=== PATIENT | female | born 1935 | race Caucasian/White ===

== ENCOUNTER → 2018-05-15 | Outpatient (CLI) | payer MEDICARE, BC ==
--- NOTE | 2018-05-15 15:02 | MR ---
EXAMINATION TYPE: MR angio head wo con DATE OF EXAM: 05/15/2018 COMPARISON: NONE HISTORY: Double vision, mental status changes TECHNIQUE: Time of flight images focusing on the [place] were performed without contrast.. 2-D and 3-D postprocessing imaging is performed on MRI scanner. FINDINGS: There is dominant right vertebral artery. Vertebral arteries are patent to basilar junction . There is patent left-sided posterior communicating artery. There is hypoplastic right-sided posteri or commuting artery. No significant stenosis or aneurysmal change in posterior circulation is present . Images in the anterior circulation show patent anterior communicating artery. There is no significant focal stenosis or aneurysmal change seen. IMPRESSION: No aneurysmal change at level of [place].
--- NOTE | 2018-05-15 15:45 | MR ---
EXAMINATION TYPE: MR brain wo/w con DATE OF EXAM: 05/15/2018 COMPARISON: None HISTORY: Double vision, mental status changes TECHNIQUE: Multiplanar, multisequence images of the brain and brainstem is performed without and with IV contras t, utilizing 6 mL intravenous Gadavist . FINDINGS: Diffusion weighted images demonstrate no evidence of a recent infarct or other diffusion ab normality. There is no extra-axial fluid collection. Periventricular white matter shows confluent a nd scattered hyperintensities on inversion recovery T2-weighted sequences, juxtacortical, pericallosa l, subcortical hyperintensities are present. Index lesion towards convexity on the right measures clifford roximately 11 mm x 7 mm on axial images #25 and 24. Additionally there is cortical atrophy is likely age-related. The ventricular system and cisternal spaces are normal in size and appearance. Midline structures demonstrate normal morphology. The craniocervical junction appears within normal limits. Post contrast images demonstrate no abnormal enhancement. The dural venous sinuses appear pa tent. The globes are intact. Mild inflammatory change present in the mastoid air cells on the right. Inflammatory change present within the sphenoid sinus, ethmoid air cells IMPRESSION: White matter demyelination may be due to chronic small vessel ischemia. Correlate for sph enoid sinusitis. No subacute ischemia evident.
== END | disposition home or self-care (01) ==
LOC: RADMRIMAIN 12:36
PROVIDERS: ATTEND Family Medicine
DX: G37.9 Demyelinating disease of central nervous system, unspecified (principal); H53.2 Diplopia; R41.82 Altered mental status, unspecified
CPT/HCPCS: 82565; 84520; 70544; 70553; A9585

== ENCOUNTER 2018-09-07 17:52 | Emergency (ER) | payer MEDICARE, BC ==
[2018-09-07 18:11] VITALS: RESP 18
[2018-09-07] MEDS ORDERED: SODIUM CHLORIDE 0.9% 1,000 ML IV STA (18:34)
--- NOTE | 2018-09-07 18:49 | ED ---
Abdominal Pain HPI - General Chief Complaint: Abdominal Pain Stated Complaint: Bowel issues Time Seen by Provider: 09/07/18 18:11 Source: patient Mode of arrival: wheelchair Limitations: no limitations - History of Present Illness Initial Comments: 82-year-old female patient presents to the emergency department today for evaluation of lower abdominal pain and pressure and low back pain. Patient states that she has been having symptoms similar to this over the last couple of weeks and dealing with constipation. Patient states she did have 3 soft bowel movements yesterday. States that today she has been very weak and has not wanted to get out of bed. States that her legs feel weak and it is difficult to walk even with her walker. She denies any fever or chills. Denies any nausea, vomiting, hematuria, dysuria, urinary frequency, urinary urgency. Denies any headache, blurred vision, double vision, dizziness, numbness or tingling to her extremities. Patient denies any recent rash, fever, chills, shortness breath, chest pain, or any other complaints. - Related Data Home Medications Medication Instructions Recorded Confirmed Albuterol Inhaler [Ventolin Hfa 2 puff INHALATION RT-Q8H 09/07/18 09/07/18 Inhaler] Aspirin [[place] Aspirin EC] 81 mg PO DAILY 09/07/18 09/07/18 Cholecalciferol [Vitamin D3] 1,000 unit PO DAILY 09/07/18 09/07/18 Cider Vinegar [Apple Cider Vinegar] 300 mg PO DAILY 09/07/18 09/07/18 Citalopram Hydrobromide [CeleXA] 40 mg PO DAILY 09/07/18 09/07/18 Metoprolol Tartrate [Lopressor] 50 mg PO DAILY 09/07/18 09/07/18 Multivitamins, Thera [Multivitamin 1 tab PO DAILY 09/07/18 09/07/18 (formulary)] [place]-3 Fatty Acids/Fish Oil [Fish 1 cap PO DAILY 09/07/18 09/07/18 Oil 1,000 mg Softgel] Phytonadione [Vitamin K] 5 mg PO DAILY 09/07/18 09/07/18 Turmeric Root Extract [Turmeric] 500 mg PO DAILY 09/07/18 09/07/18 amLODIPine [Norvasc] 5 mg PO DAILY 09/07/18 09/07/18 traZODone HCL [TraZODone HCl] 50 mg PO DIRECTED 09/07/18 09/07/18 Previous Rx's Medication Instructions Recorded Polyethylene Glycol 3350 [Miralax] 17 gm PO DAILY #30 packet 09/07/18 Potassium Chloride ER [K-Dur 20] 20 meq PO DAILY #7 tab 09/07/18 Allergies Allergy/AdvReac Type Severity Reaction Status Date / Time No Known Allergies Allergy Verified 09/07/18 18:55 Review of Systems ROS Statement: Those systems with pertinent positive or pertinent negative responses have been documented in the HPI. ROS Other: All systems not noted in ROS Statement are negative. Past Medical History Past Medical History: Hyperlipidemia, Hypertension History of Any Multi-Drug Resistant Organisms: None Reported Past Surgical History: Appendectomy, Hysterectomy, Orthopedic Surgery Past Psychological History: Depression Smoking Status: Never smoker Past Alcohol Use History: None Reported Past Drug Use History: None Reported General Exam Limitations: no limitations General appearance: alert, in no apparent distress, other (Physical well- developed, well-nourished elderly female patient in no acute distress. Vital signs upon presentation are temperature 99.3F, pulse 124, respirations 18, blood pressure 128/74, pulse ox 96% on room air.) Eye exam: Present: normal appearance, PERRL, EOMI. Absent: scleral icterus, conjunctival injection, periorbital swelling ENT exam: Present: normal exam, normal oropharynx, mucous membranes moist Respiratory exam: Present: normal lung sounds bilaterally. Absent: respiratory distress, wheezes, rales, rhonchi, stridor Cardiovascular Exam: Present: regular rate, normal rhythm, normal heart sounds. Absent: systolic murmur, diastolic murmur, rubs, gallop, clicks GI/Abdominal exam: Present: soft, normal bowel sounds. Absent: distended, tenderness, guarding, rebound, rigid Neurological exam: Present: alert, oriented X3, CN II-XII intact Psychiatric exam: Present: normal affect, normal mood Skin exam: Present: warm, dry, intact, normal color. Absent: rash Course Vital Signs 09/07/18 09/07/18 09/07/18 18:06 18:31 19:30 Temperature 99.3 F 98.9 F Pulse Rate 124 H 109 H 93 Respiratory 18 18 18 Rate Blood Pressure 128/74 143/69 148/67 O2 Sat by Pulse 96 96 96 Oximetry 09/07/18 22:06 Temperature 98.2 F Pulse Rate 87 Respiratory 18 Rate Blood Pressure 156/82 O2 Sat by Pulse 99 Oximetry Medical Decision Making - Medical Decision Making 82-year-old female patient presented to the emergency department today for complaints of lower abdominal and low back pressure. She is also reporting generalized weakness. Patient has been having problems with constipation for the last 3 weeks. States that she has had some intermittent diarrhea in between. Patient states that she has not felt like getting out of bed today. Physical examination revealed no abdominal tenderness, abdomen was soft. Labs reviewed and did reveal low potassium at 2.9, this was replaced. Remainder labs are unremarkable. KUB x-ray of the abdomen showed significant stool burden to the rectum and sigmoid colon. I did perform digital disimpaction did get a large amount of hard stool out. Patient then received a milk of molasses enema and had a large bowel movement. Upon reevaluation patient states she is feeling much better. She'll be discharged home at this time with a prescription for potassium for the next week. She is also given a prescription for MiraLAX. She is instructed to follow-up with her primary care physician for recheck in 1-2 days. Return parameters were discussed in detail. She verbalizes understanding and agrees with this plan. - Lab Data Result diagrams: 09/07/18 18:26 09/07/18 18:26 Lab Results 09/07/18 09/07/18 09/07/18 Range/Units 18:26 18:26 18:26 WBC 5.2 (3.8-10.6) k/uL RBC 4.36 (3.80-5.40) m/uL Hgb 13.6 (11.4-16.0) gm/dL Hct 40.6 (34.0-46.0) % MCV 93.2 (80.0-100.0) fL MCH 31.1 (25.0-35.0) pg MCHC 33.4 (31.0-37.0) g/dL RDW 13.3 (11.5-15.5) % Plt Count 233 (150-450) k/uL Neutrophils % 83 % Lymphocytes % 9 % Monocytes % 7 % Eosinophils % 1 % Basophils % 0 % Neutrophils # 4.3 (1.3-7.7) k/uL Lymphocytes # 0.5 L (1.0-4.8) k/uL Monocytes # 0.3 (0-1.0) k/uL Eosinophils # 0.0 (0-0.7) k/uL Basophils # 0.0 (0-0.2) k/uL Sodium 137 (137-145) mmol/L Potassium 2.9 L (3.5-5.1) mmol/L Chloride 109 H (98-107) mmol/L Carbon Dioxide 20 L (22-30) mmol/L Anion Gap 8 mmol/L BUN 14 (7-17) mg/dL Creatinine 0.67 (0.52-1.04) mg/dL Est GFR (CKD-EPI)AfAm >90 (>60 ml/min/1.73 sqM) Est GFR (CKD-EPI)NonAf 82 (>60 ml/min/1.73 sqM) Glucose 124 H (74-99) mg/dL Plasma Lactic Acid Robert 1.7 (0.7-2.0) mmol/L Calcium 8.5 (8.4-10.2) mg/dL Magnesium (1.6-2.3) mg/dL Total Bilirubin 0.4 (0.2-1.3) mg/dL AST 25 (14-36) U/L ALT 26 (9-52) U/L Alkaline Phosphatase 79 (38-126) U/L Total Protein 5.8 L (6.3-8.2) g/dL Albumin 3.3 L (3.5-5.0) g/dL Amylase <30 L (30-110) U/L Lipase 32 (23-300) U/L Urine Color Urine Appearance (Clear) Urine pH (5.0-8.0) Ur Specific [place] (1.001-1.035) Urine Protein (Negative) Urine Glucose (UA) (Negative) Urine Ketones (Negative) Urine Blood (Negative) Urine Nitrite (Negative) Urine Bilirubin (Negative) Urine Urobilinogen (<2.0) mg/dL Ur Leukocyte Esterase (Negative) Urine RBC (0-5) /hpf Urine WBC (0-5) /hpf Ur Squamous Epith Cells (0-4) /hpf Hyaline Casts (0-2) /lpf Urine Mucus (None) /hpf 09/07/18 09/07/18 Range/Units 19:25 20:00 WBC (3.8-10.6) k/uL RBC (3.80-5.40) m/uL Hgb (11.4-16.0) gm/dL Hct (34.0-46.0) % MCV (80.0-100.0) fL MCH (25.0-35.0) pg MCHC (31.0-37.0) g/dL RDW (11.5-15.5) % Plt Count (150-450) k/uL Neutrophils % % Lymphocytes % % Monocytes % % Eosinophils % % Basophils % % Neutrophils # (1.3-7.7) k/uL Lymphocytes # (1.0-4.8) k/uL Monocytes # (0-1.0) k/uL Eosinophils # (0-0.7) k/uL Basophils # (0-0.2) k/uL Sodium (137-145) mmol/L Potassium (3.5-5.1) mmol/L Chloride (98-107) mmol/L Carbon Dioxide (22-30) mmol/L Anion Gap mmol/L BUN (7-17) mg/dL Creatinine (0.52-1.04) mg/dL Est GFR (CKD-EPI)AfAm (>60 ml/min/1.73 sqM) Est GFR (CKD-EPI)NonAf (>60 ml/min/1.73 sqM) Glucose (74-99) mg/dL Plasma Lactic Acid Robert (0.7-2.0) mmol/L Calcium (8.4-10.2) mg/dL Magnesium 1.9 (1.6-2.3) mg/dL Total Bilirubin (0.2-1.3) mg/dL AST (14-36) U/L ALT (9-52) U/L Alkaline Phosphatase (38-126) U/L Total Protein (6.3-8.2) g/dL Albumin (3.5-5.0) g/dL Amylase (30-110) U/L Lipase (23-300) U/L Urine Color Yellow Urine Appearance Clear (Clear) Urine pH 7.0 (5.0-8.0) Ur Specific [place] 1.010 (1.001-1.035) Urine Protein Trace H (Negative) Urine Glucose (UA) Negative (Negative) Urine Ketones Negative (Negative) Urine Blood Negative (Negative) Urine Nitrite Negative (Negative) Urine Bilirubin Negative (Negative) Urine Urobilinogen <2.0 (<2.0) mg/dL Ur Leukocyte Esterase Trace H (Negative) Urine RBC 1 (0-5) /hpf Urine WBC 3 (0-5) /hpf Ur Squamous Epith Cells 3 (0-4) /hpf Hyaline Casts 12 H (0-2) /lpf Urine Mucus Occasional H (None) /hpf - EKG Data -: EKG Interpreted by Ct EKG Comments: EKG obtained at 1838 shows sinus tachycardia with a ventricular rate of 107, OR interval 178, QRS duration 92, QT 342, QTc 456. No evidence of ST elevation or depression. - Radiology Data Radiology results: report reviewed, image reviewed Two-view x-ray of the abdomen is obtained. Report was reviewed in its entirety. Impression by Dr. Mariam Lozano shows constipation with markedly excessive rectal stool and sigmoid stool. Disposition Clinical Impression: Abdominal pain, Hypokalemia Disposition: HOME SELF-CARE Condition: Good Instructions (If sedation given, give patient instructions): Constipation (ED), Hypokalemia (ED), Abdominal Pain (ED) Additional Instructions: Increase fluids especially water in the diet. Take medications as directed. Follow-up with your primary care physician for recheck in 1-2 days. Return to the emergency department immediately for any new, worsening, or concerning symptoms. Prescriptions: Potassium Chloride ER [K-Dur 20] 20 meq PO DAILY #7 tab Polyethylene Glycol 3350 [Miralax] 17 gm PO DAILY #30 packet Is patient prescribed a controlled substance at d/c from ED?: No Referrals: Mara Corbett DO [Primary Care Provider] - 1-2 days Time of Disposition: 21:52
[2018-09-07 18:56] LABS: Basophils % (A) 0 %; Eosinophils % (A) 1 %; HCT 40.6 % (34.0-46.0); HGB 13.6 gm/dL (11.4-16.0); Lymphocytes # (A) 0.5 k/uL (1.0-4.8); Lymphocytes % (A) 9 %; MCH 31.1 pg (25.0-35.0); MCHC 33.4 g/dL (31.0-37.0); MCV 93.2 fL (80.0-100.0); Mean Platelet Volume 6.5; Monocytes # (A) 0.3 k/uL (0-1.0); Monocytes % (A) 7 %; Neutrophils # (A) 4.3 k/uL (1.3-7.7); Neutrophils % (A) 83 %; Platelet Count 233 k/uL (150-450); RBC 4.36 m/uL (3.80-5.40); RDW 13.3 % (11.5-15.5); WBC 5.2 k/uL (3.8-10.6)
[2018-09-07 19:03] LABS: ALT 26 U/L (9-52); AST 25 U/L (14-36); Albumin 3.3 g/dL (3.5-5.0); Alkaline Phosphatase 79 U/L (38-126); Amylase <30 U/L (30-110); Anion Gap 8 mmol/L; Blood Urea Nitrogen 14 mg/dL (7-17); Calcium 8.5 mg/dL (8.4-10.2); Carbon Dioxide 20 mmol/L (22-30); Chloride 109 mmol/L (98-107); Glucose 124 mg/dL (74-99); Lipase 32 U/L (23-300); Potassium 2.9 mmol/L (3.5-5.1); Sodium 137 mmol/L (137-145); Total Bilirubin 0.4 mg/dL (0.2-1.3); Total Protein 5.8 g/dL (6.3-8.2)
[2018-09-07 19:40] LABS: Appearance,Urine Clear (Clear); Bilirubin,Urine Negative (Negative); Blood,Urine Negative (Negative); Color,Urine Yellow; Glucose,Urine (UA) Negative (Negative); Hyaline Casts,Urine 12 /lpf (0-2); Ketones,Urine Negative (Negative); Leukocyte Esterase,Urine Trace (Negative); Mucus,Urine Occasional /hpf; Nitrite,Urine Negative (Negative); Protein,Urine Trace (Negative); RBC,Urine 1 /hpf (0-5); Squamous Epithelial Cell,Urine 3 /hpf (0-4); Urobilinogen,Urine <2.0 mg/dL (<2.0); WBC,Urine 3 /hpf (0-5)
--- NOTE | 2018-09-07 19:52 | XR ---
EXAMINATION TYPE: XR KUB 2V DATE OF EXAM: 09/07/2018 COMPARISON: NONE HISTORY: Pain, constipation TECHNIQUE: 2 upright views FINDINGS: The visualized lung bases and pleural spaces are negative. There is no bowel obstruction. No abnormal gas collection. There is markedly excessive rectal stool and sigmoid stool. IMPRESSION: Constipation.
[2018-09-07] MEDS ORDERED: POTASSIUM CHLORIDE ER 20 MEQ TAB.ER PO STA (20:04)
[2018-09-07 22:07] VITALS: BP 156/82; PULSE 87; TEMP 98.2
== END 2018-09-07 22:07 | disposition home or self-care (01) ==
LOC: EC 17:52
DX: E87.6 Hypokalemia (principal); I10 Essential (primary) hypertension; F32.9 Major depressive disorder, single episode, unspecified; Z79.82 Long term (current) use of aspirin; Z79.899 Other long term (current) drug therapy
CPT/HCPCS: 36415; 74018; 80053; 81001; 82150; 83605; 83690; 83735; 85025; 87040; 87086; 93005; 96360; 99284

== ENCOUNTER 2022-01-26 13:21 | Emergency (ER) | payer MEDICARE, BC ==
[2022-01-26 13:32] VITALS: RESP 18
[2022-01-26] MEDS ORDERED: DIPH,PERTUS(ACELL)TETVAC-LF 0.5 ML VIAL IM ONE (13:44)
[2022-01-26] MEDS ORDERED: ACETAMINOPHEN TAB 500 MG TAB PO STA (13:58)
[2022-01-26] MEDS ORDERED: LIDOCAINE/EPINEPHR/TETRACAINE 5 ML BOTTLE TOPICAL ONE (13:58)
--- NOTE | 2022-01-26 14:38 | CT ---
EXAMINATION TYPE: CT brain cspine wo con CT DLP: 1233.5 mGycm, Automated exposure control for dose reduction was used. DATE OF EXAM: 01/26/2022 2:25 PM COMPARISON: MRI brain 05/15/2018. CLINICAL INDICATION:Female, 86 years old with history of head injury; fall, LOC, hematoma and head la c TECHNIQUE: Brain: Multiple axial CT images of the brain were obtained without IV contrast. Cspine: Axial CT images from the skull base to the inferior aspect of T2 we obtained without intraven ous contrast. Coronal and sagittal reformatted images were also reviewed. FINDINGS: Brain: Extra-axial spaces: No abnormal extra-axial fluid collections. Ventricular system: Within normal limits Cerebral parenchyma: No acute intraparenchymal hemorrhage or mass effect. The jay-white junction is well differentiated. Cerebral volume loss. Cerebellum: Unremarkable. Mass effect: No evidence of midline shift. Intracranial vasculature: Atherosclerotic calcifications of the intracranial vessels. Soft tissues: Moderate size left frontal subcutaneous hematoma measuring 1.6 cm in depth. Calvarium/osseous structures: No depressed skull fracture. Paranasal sinuses and mastoid air cells: The mastoid air cells are clear. Mucosal thickening of the l eft sphenoid sinus. Visualized orbits: Orbital contents are intact. Scleral calcifications noted. Cervical spine: Fracture: None. Osseous structures: Unremarkable Vertebral alignment: Within normal limits. Spinal canal/Neural Foramina: No evidence of significant spinal canal narrowing. Mild degenerative di sc disease with disc space narrowing, endplate sclerosis, and anterior aspect versus. Neck soft tissues: Prevertebral soft tissues are within normal limits. Other: The airway is patent. The lung apices are clear. Vascular sclerosis. IMPRESSION: * No acute intracranial process. * Moderate size left frontal subcutaneous hematoma. * No evidence of cervical spine fracture. * Mild multilevel degenerative disc disease.
[2022-01-26] MEDS ORDERED: BACITRACIN OINT 1 EACH PACKET TOPICAL ONE (15:01)
--- NOTE | 2022-01-26 15:05 | ED ---
Fall HPI - General Chief Complaint: Fall Stated Complaint: fall, head injury Time Seen by Provider: 01/26/22 13:23 Source: patient Mode of arrival: EMS - History of Present Illness Initial Comments: This 86-year-old female presents with a complaint of a fall. She apparently was in the bathroom at the care home when she fell and hit her left forehead. This was an unwitnessed event. There is no reported loss of consciousness. There is been no nausea or vomiting. She does present via EMS. She is not on any blood thinners. She does have a history of dementia so history is very limited. She is denying any other complaints. Her son later does present and states that she does utilize a walker normally but has not had any fall since being in the care home. No other identifiable complaints or modifying factors. - Related Data Home Medications Medication Instructions Recorded Confirmed Aspirin [[place] Aspirin EC] 81 mg PO DAILY 09/07/18 01/26/22 Multivitamins, Thera [Multivitamin 1 tab PO DAILY 09/07/18 01/26/22 (formulary)] Acetaminophen [Tylenol 8 Hour] 650 mg PO Q8H PRN 01/26/22 01/26/22 Acetaminophen [Tylenol 8 Hour] 650 mg PO TID@0500,1300,2100 01/26/22 01/26/22 Cholecalciferol [Vitamin D3 (25 25 mcg PO DAILY@69901/26/22 01/26/22 Mcg = 1000 Iu)] Donepezil [Aricept] 10 mg PO HS 01/26/22 01/26/22 FLUoxetine HCL [PROzac] 10 mg PO DAILY 01/26/22 01/26/22 Gabapentin [Neurontin] 100 mg PO DAILY@69901/26/22 01/26/22 Lidocaine/Menthol [[place] 4%-1% 1 patch TOPICAL DAILY 01/26/22 01/26/22 Patch] Losartan [Cozaar] 50 mg PO HS 01/26/22 01/26/22 Magnesium Oxide [Mag-Ox] 400 mg PO DAILY 01/26/22 01/26/22 Potassium Chloride [Klor-Con 10 ER] 10 meq PO DAILY 01/26/22 01/26/22 QUEtiapine [SEROquel] 25 mg PO HS 01/26/22 01/26/22 Thiamine [Vitamin B-1] 100 mg PO DAILY@0700 01/26/22 01/26/22 amLODIPine [Norvasc] 10 mg PO HS 01/26/22 01/26/22 lamoTRIgine [LaMICtal] 50 mg PO BID 01/26/22 01/26/22 Allergies Allergy/AdvReac Type Severity Reaction Status Date / Time No Known Allergies Allergy Verified 01/26/22 14:06 Review of Systems ROS Statement: Those systems with pertinent positive or pertinent negative responses have been documented in the HPI. ROS Other: All systems not noted in ROS Statement are negative. Past Medical History Past Medical History: Dementia, Hyperlipidemia, Hypertension History of Any Multi-Drug Resistant Organisms: None Reported Past Surgical History: Appendectomy, Hysterectomy, Orthopedic Surgery Past Psychological History: Depression Smoking Status: Never smoker Past Alcohol Use History: None Reported Past Drug Use History: None Reported General Exam - General Exam Comments Initial Comments: GENERAL: The patient is well nourished and well hydrated. VITAL SIGNS: Heart rate, blood pressure, respiratory rate reviewed as recorded in nurse's notes. EYES: Pupils are round and reactive. Extraocular movements are intact. No conjunctival / lid redness or swelling. ENT: Moderate swelling noted to the left upper forehead with mild ecchymosis and abrasion is present as well. No lacerations identified. Airway is patent. Throat is clear. NECK: Nontender. No swelling or evidence of injury. No subcutaneous emphysema. Trachea is midline. No thyroid mass. HEART: Regular rate and rhythm. Good peripheral pulses. LUNGS/CHEST: Breath sounds clear and equal bilaterally. No rales, rhonchi, or wheezes. No ecchymosis, subcutaneous emphysema, or tenderness. ABDOMEN: Abdomen soft without tenderness. No palpable masses or organomegaly. No peritoneal signs. No abdominal wall swelling or ecchymosis. EXTREMITIES: No extremity tenderness. Normal muscle tone and function. No thoracolumbar tenderness. NEUROLOGIC: Sensation is grossly intact. Cranial nerve exam reveals face is symmetrical, tongue is midline, speech is clear. SKIN: No abrasions or ecchymosis is noted. No induration or masses noted. PSYCHIATRIC: Alert and oriented. Pleasantly demented. Limitations: altered mental status Course Vital Signs 01/26/22 01/26/22 13:30 14:05 Temperature 98 F Pulse Rate 71 77 Respiratory 18 18 Rate Blood Pressure 162/87 178/89 O2 Sat by Pulse 98 97 Oximetry Medical Decision Making - Medical Decision Making The patient was seen and examined. She is given Tylenol. Computed tomography scan of the brain and cervical spine was done and does not show any acute significant abnormalities. There is mild swelling to the soft tissue left scalp region. Her wound was thoroughly cleansed. There are no lacerations present. There is an abrasion. Antibiotic ointment is ordered to apply to this abrasion. Fall prevention is discussed with patient and son. Return parameters are discussed. It is felt as though she stable for discharge. Disposition Clinical Impression: Fall, Head injury, Abrasion Disposition: HOME SELF-CARE Instructions (If sedation given, give patient instructions): Fall Prevention for Older Adults (ED), Head Injury (ED), Abrasion (ED) Additional Instructions: Please apply antibiotic ointment to the forehead wound twice daily. Utilize Tylenol if needed for pain. Is patient prescribed a controlled substance at d/c from ED?: No Referrals: Mohit Shine MD [Primary Care Provider] - 1-2 days Time of Disposition: 15:04
[2022-01-26 16:26] VITALS: BP 157/79; PULSE 65; TEMP 97.8
== END 2022-01-26 16:26 | disposition home or self-care (01) ==
LOC: EC 13:21
DX: S00.81XA Abrasion of other part of head, initial encounter (principal); Z23 Encounter for immunization; E78.5 Hyperlipidemia, unspecified; I10 Essential (primary) hypertension; F32.A Depression, unspecified; Z79.82 Long term (current) use of aspirin; Z79.899 Other long term (current) drug therapy; W18.12XA Fall from or off toilet with subsequent striking against object, initial encounter
CPT/HCPCS: 70450; 72125; 90471; 90715; 99284